=== PATIENT | male | born 2000 | race Caucasian/White ===

== ENCOUNTER 2021-01-07 08:56 | Inpatient (IN) | payer OTHER, SELFPAY ==
[2021-01-07] VITALS (45 sets, daily range): BP systolic 96–143; BP diastolic 55–95; PULSE 75–122; RESP 12–20; TEMP 36.2–38.8; O2SAT 90–100; BMI 35.6
--- NOTE | ~2021-01-07 | US_ITS ---
EXAMINATION: US venous doppler LE EXAM DATE: 01/07/2021 17:03 INDICATION: Elevated d-dimer. TECHNIQUE: Multiple grayscale, color flow and Doppler images of the lower extremity deep venous syste ms bilaterally were obtained and reviewed. There is no prior study for comparison. FINDINGS: Right side: The right common femoral, femoral and profunda veins demonstrate normal color flow, respi ratory variation, augmentation and compressibility. Compressibility, color flow confirmed within the right popliteal, posterior tibial, peroneal, and greater saphenous veins. Left side: The left common femoral, femoral and profunda veins demonstrate normal color flow, respira tory variation, augmentation and compressibility. Compressibility, color flow confirmed within the l eft popliteal, posterior tibial, peroneal, and greater saphenous veins. IMPRESSION: 1. No lower extremity deep venous thrombosis bilaterally. Reviewed, dictated and finalized at location A.
--- NOTE | ~2021-01-07 | CT_ITS ---
EXAMINATION: CTA chest PE protocol DATE: 01/07/2021 11:48 INDICATION: Shortness of breath. Cough. Covid. Elevated d-dimer. TECHNIQUE: Computed tomography angiography (CTA) of the chest was performed with 100 mL Omnipaque-350 intravenous contrast timed to evaluate the pulmonary arteries. Coronal maximum intensity projection 3D-reconstructions were created by the technologist. Automated exposure control and iterative reconst ruction technique were employed. Exam dose: 898.37 mGy-cm total exam DLP. COMPARISON: 01/07/2021 portable AP chest FINDINGS: There is diagnostic contrast enhancement of the pulmonary arteries and no evidence of pulmo nary embolism. No thoracic aortic aneurysm or dissection. Heart size is normal. No pericardial or pleural effusion. There is mild likely reactive bilateral hilar lymph node prominence. There are extensive bilateral patchy rounded areas of consolidation consistent with extensive bilater al pneumonia. Normal morphology of the adrenal glands. There is splenomegaly. Included upper abdominal structures are otherwise unremarkable. Included skeletal structures are unremarkable. IMPRESSION: Extensive bilateral pneumonia No evidence of pulmonary embolism Splenomegaly Reviewed, dictated and finalized at Location A. Reviewed, dictated and finalized at location A.
--- NOTE | ~2021-01-07 | XR_ITS ---
EXAMINATION: XR chest 1V portable DATE: 01/07/2021 09:27 INDICATION: Cough and fever. COVID PUI. TECHNIQUE: frontal view of the chest was obtained. COMPARISON: None FINDINGS: Scattered bilateral patchy airspace opacities consistent with pneumonia. No pleural effusion or pneum othorax. The cardiomediastinal silhouette is within normal limits for AP technique. IMPRESSION: 1. Patchy bilateral lung disease consistent with pneumonia. Reviewed, dictated and finalized at location A.
[2021-01-07 09:37] LABS: Basophils Percent Auto 0.2 % (0.2-1.2); Hematocrit 44.9 % (42.0-52.0); Hemoglobin 15.3 g/dL (14.0-18.0); Immature Granulocyte Absolute 0.02 K/mm3 (0.00-0.031); Immature Granulocyte Percent A 0.4 % (0-0.5); Lymphocytes Absolute Auto 1.03 K/mm3 (0.9-3.2); Mean Corpuscular HGB Conc 34.1 g/dl (32-36); Mean Corpuscular Hemoglobin 29.1 pg (26-34); Mean Corpuscular Volume 85.4 fl (80-100); Mean Platelet Volume 10.7 fl (7.4-10.4); Monocytes Absolute Auto 0.3 K/mm3 (0.1-0.6); Monocytes Percent Auto 5.6 % (2.6-8.5); Neutrophils Absolute Auto 3.8 K/mm3 (1.3-6.7); Neutrophils Percent Auto 73.8 % (45.5-73.1); Platelet Count Result 100 k/mm3 (150-375); Red Blood Count 5.26 M/mm3 (4.6-6.20); White Blood Count 5.2 K/mm3 (4.5-10.0)
--- NOTE | 2021-01-07 09:38 | ECG_ITS ---
Measurements Intervals [place] Rate: 96 P: 56 AK: 139 QRS: 48 QRSD: 101 T: 28 QT: 320 QTc: 406 Interpretive Statements SINUS RHYTHM INCOMPLETE RIGHT BUNDLE BRANCH BLOCK ST ELEVATION IN DIFFUSE LEADS- PROBABLY EARLY REPOLARIZATION ABNORMALITY BASELINE ARTIFACT- V1, V3-V6 BORDERLINE ECG Electronically Signed On 01-07-2021 10:04:40 CDT by Yamil Perez D.O.
--- NOTE | 2021-01-07 09:41 | ED.BACK ---
HPI - Back Pain/Injury General Chief Complaint: Back Pain/Injury <Halina Hackett PA-C - Last Filed: 01/07/21 12:41> Stated Complaint: covid symptoms <JANI Alicea Last Filed: 01/07/21 12:41> Time Seen by Provider: 01/07/21 09:12 <JANI Alicea Last Filed: 01/07/21 12:41> Source: patient <JANI Alicea Last Filed: 01/07/21 12:41> Mode of arrival: ambulatory <JANI Alicea Last Filed: 01/07/21 12:41> Limitations: no limitations <JANI Alicea Last Filed: 01/07/21 12:41> History of Present Illness HPI Narrative: This is a 20 year old male that presents to the ER for cold symptoms present over the last 4 days. Reports fever, cough, congestion and myalgias. Reports over the last couple of days the myalgias in his lower back are constant and unrelieved with Ibuprofen. Reports feeling short of breath. He did not receive his Covid vaccine. Currently has 2 family members that have tested positive for Covid. Denies chest pain, or lower extremity edema. <JANI Alicea Last Filed: 01/07/21 12:41> Related Data Home Medications: Home Medications Medication Instructions Recorded Confirmed dextroamphetamine-amphetamine 20 mg PO DAILY 01/07/21 01/07/21 [Adderall] <JANI Alicea Last Filed: 01/07/21 12:41> Allergies/Adverse Reactions: Allergies Allergy/AdvReac Type Severity Reaction Status Date / Time No Known Allergies Allergy Verified 01/07/21 15:18 <JANI Alicea Last Filed: 01/07/21 12:41> Review of Systems Review of Systems: Narrative: CONSTITUTIONAL: Reports fever ENT: Reports rhinorrhea, congestion. Denies sore throat CARDIOVASCULAR: Denies chest pain, or edema. RESPIRATORY: Reports cough and dyspnea. GASTROINTESTINAL: Denies abdominal pain, nausea, vomiting GENITOURINARY: Denies dysuria or hematuria. SKIN: Denies rash MUSCULOSKELETAL: Reports back pain, and myalgia. <Halina Hackett PA-C - Last Filed: 01/07/21 12:41> All systems reviewed & are unremarkable except as noted in HPI and below <Halina Hackett PA-C - Last Filed: 01/07/21 12:41> [facility] Past Medical History Medical History: Medical History (Updated 01/07/21 @ 14:13 by Dena Branch NP) History of ADHD <Halina Hackett PA-C - Last Filed: 01/07/21 12:41> Surgical History Surgical History: Surgical History (Updated 01/07/21 @ 14:13 by Dena Branch NP) H/O shoulder surgery left labrum repair History of myringotomy <Halina Hackett PA-C - Last Filed: 01/07/21 12:41> Family History Family History: Family History (Updated 01/07/21 @ 15:28 by Sushma Stevens RN) Father Diabetes mellitus Sibling Pneumonia <Halina Hackett PA-C - Last Filed: 01/07/21 12:41> Social History Social History: Social History (Updated 01/07/21 @ 14:15 by Dena Branch NP) Social History: the patient lives with his mother. She is a durable power workers compensation defense attorney for healthcare. The patient desires to be a full code. He works for a [employer]. He has no children. He is a lifelong nonsmoker. Does not use any alcohol marijuana or illicit drugs. Smoking status: Never smoker Second hand tobacco smoke exposure: No Alcohol intake: never Substance use: never Spiritual care concerns: No <Halina Hackett PA-C - Last Filed: 01/07/21 12:41> Exam Narrative: Exam Narrative: GENERAL: Well-appearing, obese, and in no acute distress. HEAD: Normocephalic, atraumatic. EYES: EOMI. CHEST: Clear to auscultation. No respiratory distress. No wheezes rales or rhonchi HEART: Regular rate and rhythm. No murmur heard. Normal peripheral pulses. ABDOMEN: Soft, nontender, nondistended, normal active bowel sounds. No CVA tenderness BACK: No midline spinal tenderness EXTREMITIES: Normal range of motion. No edema. SKIN: Warm, dry, no rash. NEURO: No focal deficits. Alert and orient
[2021-01-07 09:54] LABS: Alanine Aminotransferase 127 U/L (4-50); Albumin Level 3.8 g/dL (3.7-5.6); Alkaline Phosphatase 64 U/L (58-237); Anion Gap 10 mmol/L (8-16); Aspartate Amino Transferase 92 U/L (17-59); Bilirubin,Total 0.8 mg/dL (0.2-1.3); Blood Urea Nitrogen 11 mg/dL (8-21); Calcium 8.4 mg/dL (8.9-10.7); Carbon Dioxide 24 mmol/L (22-30); Chloride 103 mmol/L (98-107); Estimated CRCL calculation 155 ml/min; Estimated Glomerular Filt Rate > 60; Glucose 97 mg/dL (65-110); Lipase 42 U/L (23-300); Potassium 3.8 mmol/L (3.4-5.0); Sodium 137 mmol/L (134-143)
[2021-01-07 10:06] LABS: CRP 8.5 mg/dL (<1.0); Lactate Dehydrogenase 1163 U/L (313-618)
--- NOTE | 2021-01-07 10:17 | PC.NURSE ---
SPO2 dropped to 85% on room air while pt is sleeping. Pt placed on 2L/NC O2 bringing SpO2 to 94%.
[2021-01-07 10:43] LABS: Prothrombin Time 13.3 Seconds (11.1-14.7)
[2021-01-07 10:44] LABS: Partial Thromboplastin Time 35.9 SECONDS (22.3-36.8)
[2021-01-07 11:18] LABS: Procalcitonin 0.3 ng/mL
[2021-01-07 11:26] LABS: Add Urine Microscopic? YES; Amorphous Sediment Urine Few; Appearance Urine Cloudy (Clear); Bilirubin Urine Negative (Negative); Blood Urine Negative (Negative); Color Urine Amber (Yellow); Glucose Urine UA Negative (Negative); Ketones Urine 1+ mg/dL (Negative); Leukocyte Esterase Ur Negative LEU/UL (Negative); Mucus Urine Few /lpf; Nitrate Urine Negative (Negative); Protein Urine 2+ mg/dL (Negative); RBC Urine 0-2 /hpf (0-2); Squamous Epithelial Cell Urine Rare /hpf (Few); Urobilinogen Urine Negative mg/dL (<2.0)
--- NOTE | 2021-01-07 11:42 | PC.NURSE ---
Pt to CT.
[2021-01-07] MEDS: DEXAMETHASONE SOD PHOS INJ 4 MG/ML VIAL 6 MG IV PUSH (12:38)
--- NOTE | 2021-01-07 14:08 | PM.IMHP ---
H&P: HPI History of Present Illness Date/Time: 01/07/21 14:08 This is a 20-year-old male patient who resides with his mother. His mother and his brother or recovering from COVID-19. The patient has not been feeling well for the last 4 days. He has had flu-like symptoms. He has had lower back pain with fever and chills and myalgias. The patient stated that he was not able to sleep at all last night because of lower back pain. the patient did take ibuprofen for his discomfort but it did not seem to help his back pain. Patient also stated that he is short of breath. He did not receive any of the COVID-19 vaccine. Patient denied any chest pain or any extremity edema. His D-dimer was elevated and a CT was performed which was read as following; no evidence of pulmonary embolism extensive bilateral pneumonia. Chest x-ray was performed which was read as patchy bilateral lung disease consistent with pneumonia. The patient was empirically started on azithromycin and Rocephin. However I suspect that this is COVID-19. The patient was given dose of Decadron in the emergency room. D-dimer was noted to be 0.60 ferritin was elevated to 479. Liver enzymes are elevated with AST of 92 ALT is 127. Lactic dehydrogenase 1163. C reactive protein 8.5. Total protein 6 0. COVID-19 swab is still pending. The patient is being admitted to inpatient services on the date of service of 01/07/2021. Chief Complaint: shortness of breath Review of Systems Review of Systems: All systems reviewed & are unremarkable except as noted in HPI and below Constitutional: Constitutional: Reports as per HPI and Reports no additional constitutional complaints Eyes: Eyes: Reports as per HPI and Reports no additional eye complaints ENT: Reports system reviewed and no additional complaints, except as documented and Reports Normal hearing present Cardiovascular: Cardiovascular: Reports no additional cardiovascular complaints Respiratory: Respiratory: Reports no additional respiratory complaints and Reports no additional respiratory complaints Gastrointestinal: Gastrointestinal: Reports as per HPI and Reports no additional gastrointestinal complaints Musculoskeletal: Musculoskeletal: Reports no additional musculoskeletal complaints Integumentary/Breasts: Skin/Breast: Reports system reviewed and no additional complaints, except as docu and Reports as per HPI Neurologic: Reports system reviewed and no additional complaints, except as documented, Reports as per HPI and Reports Normal hearing present Psychiatric: Psychiatric: Reports no additional psychiatric complaints and Reports as per HPI Endocrine: Endocrine: Reports no additional endocrine complaints Hematologic/Lymphatic: Hematologic/Lymphatic: Reports no additional hematologic/lymphatic complaints Allergic/Immunologic: Allergic/Immunologic: Reports no additional allergic/immunologic complaints [facility] Past Medical History Medical History (Updated 01/07/21 @ 14:13 by Dena Branch NP) History of ADHD Surgical History Surgical History (Updated 01/07/21 @ 14:13 by Dena Branch NP) H/O shoulder surgery left labrum repair History of myringotomy Family History Family History (Updated 01/07/21 @ 14:14 by Dena Branch NP) Father Diabetes mellitus Social History Social History (Updated 01/07/21 @ 14:15 by Dena Branch NP) Social History: the patient lives with his mother. She is a durable power patent prosecution attorney for healthcare. The patient desires to be a full code. He works for a [employer]. He has no children. He is a lifelong nonsmoker. Does not use any alcohol marijuana or illicit drugs. Smoking status: Never smoker Meds Home Medications and Allergies Home Medications Medication Instructions Recorded Confirmed Type No Home Medications 01/07/21 01/07/21 History Allergies Allergy/AdvReac Type Severity Reaction Status Date / Time No Known A
--- NOTE | 2021-01-07 15:05 | ADMGEN ---
This patient, Ernesto Live, was admitted to [facility] Surg Room 310-01. Patient/family oriented to hospital policies and general routines including ID bracelet, bed and alarms, visiting hours, pain management, procedures, bathroom and other care routines, personal items, smoking policy, room service/diet, and visiting hours. Information on how to activate the Rapid Response Team has been discussed. Patient/Family are encouraged to report perceived risks to care and to ask questions if they do not understand what they are told or what they should do.
[2021-01-07 17:52] LABS: SARS-CoV-2 RNA PCR Positive
[2021-01-07] MEDS: ALBUTEROL SULFATE (*SP) AEROSOL 1 PUFF 2 PUFF INHALATION (21:45)
[2021-01-07] MEDS: guaiFENesin/DEXTROMETHORPHAN 10 ML UDC PO (23:38)
[2021-01-08] VITALS: PULSE 114
[2021-01-08 00:27] VITALS: TEMP 38.8
[2021-01-08] MEDS: ACETAMINOPHEN 325 MG TABLET 650 MG PO (00:27)
[2021-01-08] MEDS: ALBUTEROL SULFATE (*SP) AEROSOL 1 PUFF 2 PUFF INHALATION ×2 (02:47→08:46)
[2021-01-08 04:00] VITALS: BP 138/77; PULSE 96; RESP 18; TEMP 37.1; O2SAT 97
[2021-01-08 06:56] LABS: Basophils Percent Auto 0.2 % (0.2-1.2); Hemoglobin 14.5 g/dL (14.0-18.0); Immature Granulocyte Absolute 0.02 K/mm3 (0.00-0.031); Immature Granulocyte Percent A 0.4 % (0-0.5); Immature Platelet Fraction Pct 5.9 % (0.9-11.2); Lymphocytes Absolute Auto 1.08 K/mm3 (0.9-3.2); Lymphocytes Percent Auto 21.8 % (18.3-44.2); Mean Corpuscular HGB Conc 34.5 g/dl (32-36); Mean Corpuscular Hemoglobin 28.7 pg (26-34); Mean Platelet Volume 10.7 fl (7.4-10.4); Monocytes Absolute Auto 0.5 K/mm3 (0.1-0.6); Monocytes Percent Auto 9.1 % (2.6-8.5); Neutrophils Absolute Auto 3.4 K/mm3 (1.3-6.7); Neutrophils Percent Auto 68.5 % (45.5-73.1); Platelet Count Result 107 k/mm3 (150-375); Red Blood Count 5.06 M/mm3 (4.6-6.20); Red Cell Distribution Width 12.6 % (11.5-14.5)
[2021-01-08 07:12] LABS: Alanine Aminotransferase 108 U/L (4-50); Albumin Level 3.7 g/dL (3.7-5.6); Alkaline Phosphatase 59 U/L (58-237); Anion Gap 8 mmol/L (8-16); Aspartate Amino Transferase 66 U/L (17-59); Bilirubin,Total 0.8 mg/dL (0.2-1.3); Blood Urea Nitrogen 10 mg/dL (8-21); Calcium 8.6 mg/dL (8.9-10.7); Carbon Dioxide 26 mmol/L (22-30); Chloride 102 mmol/L (98-107); Estimated CRCL calculation 182 ml/min; Estimated Glomerular Filt Rate > 60; Glucose 106 mg/dL (65-110); Magnesium 1.8 mg/dL (1.6-2.3); Potassium 3.8 mmol/L (3.4-5.0); Sodium 136 mmol/L (134-143)
[2021-01-08 08:00] VITALS: BP 120/68; PULSE 109; PULSE 89; RESP 22; TEMP 37.6; O2SAT 96
[2021-01-08 10:10] VITALS: PULSE 89
[2021-01-08] MEDS: DEXAMETHASONE SOD PHOS INJ 4 MG/ML VIAL 6 MG IV PUSH (10:11)
--- NOTE | 2021-01-08 10:11 | PM.DS ---
DS: Admitting Diagnosis Admitting Diagnosis Admitting Diagnosis: COVID-19 DS: Discharge Diagnosis Discharge Diagnosis (1) CAP (community acquired pneumonia): Code(s): J18.9 - Pneumonia, unspecified organism Status: Acute Assessment and Plan: Patient was empirically started on azithromycin Rocephin. However patient has many signs that this is COVID-19. Patient was started on these antibiotics however in the event that the patient test positive for COVID-19 that these antibiotics need to be with albuterol inhaler. COVID test came back positive Will continue Decadron at home and send patient home with albuterol inhaler. (2) Suspected COVID-19 virus infection: Code(s): Z20.822 - Contact with and (suspected) exposure to COVID-19 Status: Acute Assessment and Plan: Patient has been placed on droplet and contact isolation. The patient has not been vaccinated. Patient's liver enzymes are elevated. His ferritin is elevated. His chest x-ray is suggestive of COVID-19. The patient was started on IV Decadron. He was placed on oxygen at 2 L for his hypoxia where he had a pulse ox that dropped down. We discussed pronation repositioning. COVID test is positive (3) Thrombocytopenia: Code(s): D69.6 - Thrombocytopenia, unspecified Status: Acute Assessment and Plan: I did not anticoagulate the patient has he has thrombocytopenia at this point platelets are 100. We can do SCDs if his venous Dopplers are negative. Follow up with primary about getting labs again to check for thrombocytopenia (4) Acute respiratory failure with hypoxia: Code(s): J96.01 - Acute respiratory failure with hypoxia Status: Acute Assessment and Plan: Patient was placed on oxygen and inhalation treatment. Encouraged pronation Patient has been on room air since 2129 last night. His saturation has not been documented lower than 96% throughout stay. DS: Summary Hospital Course Hospital Course: patient is a 20-year-old male with past medical history of ADHD who presented to the ED for shortness of breath and body aches. Since admission patient was placed on 2 L nasal cannula due to a slight decline in oxygen saturation however has been room air since 930 last night. Patient was also noted to have a fever upon arrival at 38.8? C. labs were normal with white blood cell count of 5.0 and a stable hemoglobin hematocrit however his platelet count is low at 100. Patient will go home on Decadron for 5 days and was educated for reasons to return. Patient stated that he is ready to go home and it was nice for him to get a night good night sleep he did say that he noticed a little bit of a fever last night however he does not have any complaints today. patient denies chest pain, shortness of breath, nausea, vomiting, abdominal pain, constipation, diarrhea, fevers sweats, chills, or back pain. Patient also denies dyspnea with exertion while walking to the bathroom and back to the bed. Status at Discharge Functional status at discharge: independent ambulation Time Spent with Patient Time attestation: Total time spent providing and/or coordinating discharge services: Time spent: Greater than 30 minutes Exam Const: General: cooperative, healthy appearing, comfortable, no acute distress, well developed, alert, awake and Physically active Nutritional Appearance: average body habitus and well nourished Orientation/consciousness: oriented to person, oriented to place, oriented to time and patient oriented x3 Limitations: no limitations HENMT: Head: normal to inspection, No palpable skull fracture present, normocephalic and atraumatic Ears: hearing grossly normal bilaterally and external ears normal General nose exam: Normal external nose present, Normal nares present and No nasal polyps present Eyes: General: appearance normal, both eyes and all related structures Alignment and Position: alig
[2021-01-08 10:15] LABS: Thyroid Stimulating Hormone Reflex 0.634 uIU/mL (0.465-4.68)
[2021-01-08 11:28] VITALS: BP 119/53; PULSE 105; RESP 20; TEMP 37.8; O2SAT 97
== END 2021-01-08 12:40 | disposition home or self-care (01) | DRG 177 ==
LOC: ANHED 12:37 → ANH3MEDSUR 13:38
PROVIDERS: Nurse Practitioner; Physician Assistant; Admitting Provider Family Medicine; Emergency Provider Emergency Medicine; PCP Anesthesiology; Visit Provider Internal Medicine
DX: U07.1 COVID-19 (principal); J12.82 Pneumonia due to coronavirus disease 2019; J96.01 Acute respiratory failure with hypoxia; D69.6 Thrombocytopenia, unspecified; F90.9 Attention-deficit hyperactivity disorder, unspecified type; E66.9 Obesity, unspecified; Z68.35 Body mass index [BMI] 35.0-35.9, adult
CPT/HCPCS: 36415; 71045; 71275; 80053; 81001; 82728; 83615; 83690; 83735; 84145; 84443; 85025; 85055; 85380; 85610; 85730; 86140; 93005; 93970; 94640; 96365; 96366; 96367; 96368; 96375; 99291; A9270; C9803; J0131; J0456; J0696; J1100; Q9967; U0003; U0005

== ENCOUNTER 2023-07-26 08:50 | Emergency (ER) | payer OTHER, SELFPAY ==
[2023-07-26 09:05] VITALS: BP 131/70; PULSE 84; RESP 16; TEMP 36.4; O2SAT 99
--- NOTE | 2023-07-26 09:21 | ED.EAR ---
HPI - Ear Problem General Chief complaint: Ear Stated complaint: right ear pain Time Seen by Provider: 07/26/23 09:21 Source: patient Mode of arrival: ambulatory Limitations: no limitations History of Present Illness HPI Narrative: 22 yo M presents with c/o R ear pain for 2 days. Worse today after getting to work and loud welding irritated ear. States sinuses has been full past few days and concerned ear infected. Afebrile. all systems reviewed and negative except as noted above. Related Data Home Medications Medication Instructions Recorded Confirmed dextroamphetamine-amphetamine 20 20 mg PO DAILY 01/07/21 07/26/23 mg tablet (Adderall) Allergies Allergy/AdvReac Type Severity Reaction Status Date / Time No Known Allergies Allergy Verified 01/07/21 15:18 Review of Systems Review of Systems: CONSTITUTIONAL: Denies fever, chills, or sweats. EYES: Denies visual changes, redness, or discharge. ENT: Denies rhinorrhea, congestion, sore throat . Reports right ear pain. CARDIOVASCULAR: Denies chest pain, palpitations, or edema. RESPIRATORY: Denies cough or dyspnea. GASTROINTESTINAL: Denies abdominal pain, nausea, vomiting, or diarrhea. GENITOURINARY: Denies dysuria or hematuria. SKIN: Denies rash or itching. MUSCULOSKELETAL: Denies back pain, joint pain, or myalgia. NEUROLOGIC: Denies headache, numbness, or weakness. PSYCHIATRIC: Denies anxiety or depression. All other systems reviewed are negative, except as documented in HPI. [facility] Past Medical History Medical History (Updated 07/26/23 @ 09:24 by Beatriz Flores NP) History of ADHD Surgical History Surgical History (Updated 01/07/21 @ 14:13 by Dena Branch NP) H/O shoulder surgery left labrum repair History of myringotomy Family History Family History (Updated 01/07/21 @ 15:28 by Sushma Stevens RN) Father Diabetes mellitus Sibling Pneumonia Social History Social History (Updated 01/07/21 @ 14:15 by Dena Branch NP) Social History: the patient lives with his mother. She is a durable power attorney lawyer for healthcare. The patient desires to be a full code. He works for a [employer]. He has no children. He is a lifelong nonsmoker. Does not use any alcohol marijuana or illicit drugs. Smoking status: Never smoker Second hand tobacco smoke exposure: No Alcohol intake: never Substance use: never Spiritual care concerns: No Comments At time of signature, agree with nursing past medical, surgical, social and family history. There is no relevant family history pertinent to the presenting complaint. Exam Narrative: GENERAL: This is a well-nourished, well-developed patient, in no apparent distress. HEAD: normocephalic, atraumatic. EYES: PERRL. Sclera clear/white. Vision is grossly intact. EARS: External ears normal, auditory canals clear and without drainage, Clear fluid and bubbling to right TM with mild erythema. Left TM. No perforation bilaterally. Hearing grossly intact. NOSE: External nose normal NECK: Neck supple, non-tender without lymphadenopathy, masses or thyromegaly. CARDIOVASCULAR: Regular rate and rhythm without murmurs, gallops, or rubs. RESPIRATORY: Clear to auscultation. Breath sounds equal bilaterally. No wheezes, rales, or rhonchi. SKIN: warm, Dry, intact with no suspicious lesions or rash, good texture and turgor. NEURO: awake, alert, and oriented to person, place and time. There were no obvious focal neurologic abnormalities. EXTREMITIES: No joint tenderness, effusion, or edema noted. Course Course Level of Care: Express Care Visit Vital Signs Vital signs: Vital Signs Temperature 36.4 C 07/26/23 09:05 Pulse Rate 84 07/26/23 09:05 Respiratory Rate 16 07/26/23 09:05 Blood Pressure 131/70 07/26/23 09:05 Pulse Oximetry 99 07/26/23 09:05 Oxygen Delivery Room Air 07/26/23 09:05 Temperature 36.4 C 07/26/23 09:05 Pulse Rate 84
== END 2023-07-26 09:29 | disposition home or self-care (01) ==
PROVIDERS: Emergency Provider Nurse Practitioner Family; PCP Anesthesiology
DX: H65.01 Acute serous otitis media, right ear (principal); F90.9 Attention-deficit hyperactivity disorder, unspecified type
CPT/HCPCS: 99213; G0463